=== PATIENT | male | born 1970 ===

== ENCOUNTER 2021-07-19 03:41 | Outpatient (CLI) | payer OTHER, SELFPAY ==
[2021-07-20 04:55] LABS: COVID-19 RT-PCR UVMMC Result Negative (Negative)
== END 2021-07-19 03:42 | disposition home or self-care (01) ==
PROVIDERS: Visit Provider Nurse Practitioner Family
DX: Z20.822 Contact with and (suspected) exposure to COVID-19 (principal)
CPT/HCPCS: U0003